=== PATIENT | female | born 1990 | race Hispanic/Latino ===

== ENCOUNTER 2017-04-08 22:59 | Emergency (ER) | payer MEDICAID, OTHER ==
[2017-04-08] MEDS ORDERED: IBUPROFEN 600 MG TABLET ONE (23:19)
== END 2017-04-08 23:23 | disposition home or self-care (01) ==
LOC: EDH 22:59
DX: J09.X2 Influenza due to identified novel influenza A virus with other respiratory manifestations (principal); Z88.0 Allergy status to penicillin